=== PATIENT | female | born 1965 | race Caucasian/White ===

== ENCOUNTER 2016-08-24 18:31 | Emergency (ER) | payer SELFPAY ==
[~2016-08-24] VITALS: Ht 157.5 cm; Wt 76.0 kg
[2016-08-24 18:32] VITALS: BP 157/91; PULSE 97; RESP 18; TEMP 98.3; O2SAT 100
[2016-08-24] MEDS ORDERED: VARE1PAK3 PO (18:58)
[2016-08-24] MEDS ORDERED: ACETAMINOPHEN/HYDROcodone 325 MG/5 MG TAB PO ONE (19:30)
[2016-08-24] MEDS ORDERED: CLINDAMYCIN PHOS 600 MG/4 ML VIAL IM ONE (19:30)
[2016-08-24] MEDS ORDERED: CEPH-460 PO (19:47)
[2016-08-24] MEDS ORDERED: DICL75TA PO (19:47)
[2016-08-24] MEDS ORDERED: CLIN1CAP5 PO (19:47)
--- NOTE | 2016-08-24 19:56 | PD ---
HPI Chief Complaint: Skin Problem Time Seen by Provider: 19:48 Travel History International Travel<30 days: No Contact w/Intl Traveler<30days: No Traveled to known affect area: No History of Present Illness HPI 50-year-old female that presents to the ED for evaluation of swelling and redness to the webspace between the fourth and fifth digits of the right foot. Per patient is in ongoing since on 2 weeks ago she [place] and something poke her. Per patient she couldn't see what actually got her and she felt that she got it all out. Per patient to go the 2 weeks she 's been having some swelling and pain she's been trying everything over-the- counter with no relief. Per patient she decided to come here because he doesn' t seem to be getting better and she has more redness and the concern that she could have an infection. She denies any history of diabetes. No chest pain or shortness of breath. No fevers chills or sweats. Pain per patient is 7 out of 10 especially with touch. She's never had infections or surgeries to the area. She has a history of gout. She denies any foreign body sensation. Is able to move the fingers fully. States having good capillary refills. No allergies to medication. PFSH Past Medical History Medical History: Denies Significant Hx ?: Not Social History Alcohol Use: No Tobacco Use: Yes Substance Use: No Allergies-Medications (Allergen,Severity, Reaction): Coded Allergies: No Known Allergies (Unverified , 08/24/16) Reported Meds & Prescriptions Reported Meds & Active Scripts Active Diclofenac Sodium DR (Diclofenac Sodium) 75 Mg Tabdr 75 Mg PO BID PRN Keflex (Cephalexin) 500 Mg Cap 500 Mg PO Q6H 10 Days Clindamycin (Clindamycin HCl) 150 Mg Cap 300 Mg PO Q6H 10 Days Reported Chantix Starting Month Humberto (Varenicline) 0.5 mg X 11 & 1 mg X 42 Pack 1 Tab PO DIRECTED Review of Systems Except as stated in HPI: all other systems reviewed are Neg Physical Exam Narrative GENERAL: SKIN: Warm and dry. HEAD: Atraumatic. Normocephalic. EYES: Pupils equal and round. No scleral icterus. No injection or drainage. ENT: No nasal bleeding or discharge. Mucous membranes pink and moist. Tongue is midline. No uvula deviation. NECK: Trachea midline. No JVD. CARDIOVASCULAR: Regular rate and rhythm. RESPIRATORY: No accessory muscle use. Clear to auscultation. Breath sounds equal bilaterally. GASTROINTESTINAL: Abdomen soft, non-tender, nondistended. Hepatic and splenic margins not palpable. MUSCULOSKELETAL: Extremities without clubbing, cyanosis, or edema. No obvious deformities. Full range of motion of all toes of the right foot. Patient has full range of motion of the foot itself. 2+ pulses bilaterally. Patient does have a blister to the medial aspect of the right foot. Patient has an area of erythema as well as redness noted on the webspace of the septum fourth digits. No obvious sign of puncture wound or foreign body noted. Erythema noted. Some of the erythema appears to be streaking up the foot. No passing more than a quarter of the right dorsal foot. NEUROLOGICAL: Awake and alert. No obvious cranial nerve deficits. Motor grossly within normal limits. Five out of 5 muscle strength in the arms and legs. Normal speech. PSYCHIATRIC: Appropriate mood and affect; insight and judgment normal. Data Data Last Documented VS Vital Signs Date Time Temp Pulse Resp B/P Pulse Ox O2 Delivery O2 Flow Rate FiO2 08/24/16 18:32 98.3 97 18 157/91 100 Orders Foot, Complete ([facility]) (08/24/16 19:16) Clindamycin Inj (Cleocin Inj) (08/24/16 19:30) Acetamin-Hydrocod 325-5 Mg ([place] 5-325 (08/24/16 19:30) MDM Medical Decision Making Medical Screen Exam Complete: Yes Emergency Medical Condition: Yes Medical Record Reviewed: Yes Interpretation(s) xray of the right foot shows no sign of foreign body Differential Diagnosis Cellulitis versus sepsis versus foreign body versus contusion Narrative Course 50-year-old female that presents to the ED for evaluation of possible infection to the right foot. Patient was properly examined and was found to have signs and symptoms which appear to be no cellulitis of thewithin the fifth and fourth digits. Abdomen is any sign of purulence at this time. This is likely secondary to puncture wound. X-ray was done to rule out bony injury. X-ray was negative for this. Patient was reassured. At this time patient was given an IM dose of clindamycin as well as Lortab for pain. Patient was given a prescription for diclofenac sodium, clindamycin, Keflex. Patient was told to apply ice or warm compresses. Recheck in 48 hours. See ED worsening symptoms. Patient agrees with plan. All questions were answered to the best of my ability. Diagnosis Primary Impression: Cellulitis Qualified Code: L03.115 - Cellulitis of right lower extremity Patient Instructions: General Instructions, Narcotic given in the ED Additional Instructions: Apply ice or warm compresses. Take medications as prescribed. Recheck in 48- 72 hours. See ED worsening symptoms. Med/Other Pt SpecificInfo: Prescription(s) given Scripts Diclofenac Sodium DR 75 Mg Tabdr75 Mg PO BID PRN (PAIN SCALE 1 TO 10) #20 TAB Prov:Naima Nieves MD 08/24/16 Cephalexin (Keflex)500 Mg Qpd364 Mg PO Q6H 10 Days Prov:Naima Nieves MD 08/24/16 Clindamycin 150 Mg Fpw420 Mg PO Q6H 10 Days Prov:Naima Nieves MD 08/24/16 Disposition: 01 DISCHARGE HOME Condition: Stable Pratik Velazquez Aug 24, 2016 19:56
--- NOTE | 2016-08-24 20:15 | RADRPT ---
EXAM DATE/TIME: 08/24/2016 19:39 [facility] COMPARISON: No previous studies available for comparison. INDICATIONS : Patient was walking on beach and felt a poke on 5th digit right foot. Inflammation of 5th digit down to 5th metatarsal. Majority of inflammation at 5th MTPJ, right foot. MEDICAL HISTORY : None. SURGICAL HISTORY : None. ENCOUNTER: Initial ACUITY: 1 week PAIN SCORE: 6/10 LOCATION: Right 5th MTPJ, right foot FINDINGS: Three view examination of the right foot demonstrates no soft tissue swelling, dislocation, or fractu re. The tarsal bones appear intact. The interphalangeal and metatarsophalangeal joints are intact. The calcaneus is intact. Bony mineralization is normal. CONCLUSION: Normal examination for a patient of this age. Abdon Mckeon MD on August 24, 2016 at 20:12 Board Certified Radiologist. This report was verified electronically.
[2016-08-24 20:17] VITALS: BP 146/69; PULSE 64; RESP 18; O2SAT 98
== END 2016-08-24 20:23 | disposition home or self-care (01) ==
LOC: NEPD 18:31
DX: L03.115 Cellulitis of right lower limb (principal); Z72.0 Tobacco use
CPT/HCPCS: 73630; 96372